=== PATIENT | male | born 1955 | race Two or more races ===

== ENCOUNTER 2023-07-06 19:40 | Emergency (ER) | payer MEDICARE ==
[2023-07-06] MEDS ORDERED: Acetaminophen/oxyCODONE 325-5 MG Tab PO ONE (19:41)
[2023-07-06 20:34] LABS: BASOPHILS ABSOLUTE AUTO 0.1 x10-3/uL (0.0-0.3); BASOPHILS PERCENT AUTO 1.1 % (0.3-3.8); EOSINOPHILS ABSOLUTE AUTO 0.4 x10-3/uL (0.0-0.6); HEMATOCRIT 39.9 % (38.3-50.1); LYMPHOCYTES ABSOLUTE AUTO 2.1 x10-3/uL (0.5-4.5); LYMPHOCYTES PERCENT AUTO 23.5 % (15.8-45.3); MEAN CORPUSCULAR HEMOGLOBIN 32.6 pg (27.0-33.3); MEAN CORPUSCULAR HGB CONC 35.2 g/dL (28.7-35.3); MEAN CORPUSCULAR VOLUME 92.7 fL (80.8-98.7); MONOCYTES ABSOLUTE AUTO 0.6 x10-3/uL (0.0-1.2); MONOCYTES PERCENT AUTO 6.7 % (5.5-15.2); NEUTROPHILS ABSOLUTE AUTO 5.7 x10-3/uL (1.7-6.9); NEUTROPHILS PERCENT AUTO 64.7 % (40.3-71.8); PLATELET COUNT,PLT 215 x10(3)uL (117-477); RED CELL DISTRIBUTION WIDTH 12.9 % (12.4-15.0); WHITE BLOOD CELL COUNT,WBC 8.8 x10-3/uL (3.2-10.1)
[2023-07-06] MEDS: Diphtheria,Pertussis(Acell),Tetanus Vaccine 0.5 ML Syringe IM ONE (20:34)
[2023-07-06 20:37] LABS: BLOOD UREA NITROGEN,BUN 14 mg/dL (7-18); BUN/CREATININE RATIO 12.7 (9-20); CALCIUM 8.9 mg/dL (8.6-10.2); CARBON DIOXIDE,CO2 29 mmol/L (21-32); CHLORIDE,CL 101 mmol/L (100-110); CREATININE 1.1 mg/dL (0.70-1.30); EST CRCL DRUG DOSING (CG) 59.26 mL/min; ESTIMATED GFR 73 mL/min (>60); GLUCOSE RANDOM 120 mg/dL (80-116); POTASSIUM,K 3.2 mmol/L (3.5-5.3); SODIUM,NA 140 mmol/L (135-145)
[2023-07-06 20:43] LABS: ALANINE AMINOTRANSFERASE,ALT 60 U/L (12-36); ALKALINE PHOSPHATASE 107 IU/L (56-112); ASPARTATE AMNIOTRANSFERASE,AST 51 IU/L (5-25); BILIRUBIN TOTAL 0.4 mg/dL (0.1-1.3)
[2023-07-06] MEDS ORDERED: Naloxone 0.4 MG/ML SDV IVPUSH PRN (21:30)
[2023-07-06] MEDS: Ondansetron 4 MG/2 ML SDV IVPUSH ONE (21:33)
[2023-07-06] MEDS: HYDROmorphone 2 MG/ML SDV IVPUSH ONE (21:34)
[2023-07-06] MEDS: Ampicillin/Sulbactam Na 3 GM in Sodium Chloride 0.9% 100 ML IV ONE (21:46)
== END 2023-07-06 23:10 | disposition home or self-care (01) ==
LOC: FB.ED 19:40
DX: S61.451A Open bite of right hand, initial encounter (principal); R03.0 Elevated blood-pressure reading, without diagnosis of hypertension; L03.113 Cellulitis of right upper limb; A28.0 Pasteurellosis; Z23 Encounter for immunization; F17.200 Nicotine dependence, unspecified, uncomplicated; W54.0XXA Bitten by dog, initial encounter
CPT/HCPCS: 36415; 73130-RT; 80053; 83735; 85025; 86140; 90471; 90715; 96365; 96375; 99283-25; A9270-GY; J0295; J1170; J2405; J3490

== ENCOUNTER 2024-01-09 07:35 | Day surgery (SDC) | payer MEDICARE ==
[~2024-01-09 07:35] MED LIST: Sodium Chloride 0.9% 10 ML Syringe FLUSH PRN
[2024-01-09] MEDS ORDERED: Propofol 200 MG/20 ML SDV IV ONE (07:36)
[2024-01-09] MEDS ORDERED: fentaNYL 100 MCG/2 ML SDV IV ONE (07:36)
[2024-01-09] MEDS ORDERED: Midazolam 1 MG/ML 2 ML SDV IV ONE (07:36)
[2024-01-09] MEDS: Lactated Ringers 1,000 ML IV SCH (08:18)
== END 2024-01-09 10:38 | disposition home or self-care (01) ==
LOC: FB.SDS 07:35
PROVIDERS: ATTEND Surgery
DX: Z12.11 Encounter for screening for malignant neoplasm of colon (principal); D12.6 Benign neoplasm of colon, unspecified; K57.30 Diverticulosis of large intestine without perforation or abscess without bleeding; Z86.010 Personal history of colon polyps; J44.9 Chronic obstructive pulmonary disease, unspecified; I12.9 Hypertensive chronic kidney disease with stage 1 through stage 4 chronic kidney disease, or unspecified chronic kidney disease; N18.2 Chronic kidney disease, stage 2 (mild); Z87.891 Personal history of nicotine dependence
CPT/HCPCS: 00811; 88305; J2250; J2704; J3010; J7120